=== PATIENT | male | born 1965 | race Caucasian/White ===

== ENCOUNTER → 2024-03-09 09:20 | Outpatient (REF) | payer BC, SELFPAY ==
[2024-03-09 20:04] LABS: ALT (SGPT) 36 U/L (0-50); AST (SGOT) 35 U/L (17-59); Albumin 4.4 g/dl (3.5-5.0); Alkaline Phosphatase 120 U/L (38-126); Blood Urea Nitrogen 17 mg/dl (9-20); Calcium 9.5 mg/dl (8.4-10.2); Carbon Dioxide 24 mmol/L (22-30); Chloride 102 mmol/L (98-107); Glucose 97 mg/dl (70-99); HDL Cholesterol 49 mg/dl; LDL Cholesterol, Calculated 75 mg/dl; Sodium 139 mmol/L (135-145); Total Bilirubin 0.7 mg/dl (0.2-1.3); Total Cholesterol 153 mg/dl (50-199); Total Protein 7.3 g/dl (6.3-8.2); Triglyceride 145 mg/dl (10-149); Very Low Density Lipoprotein 29 mg/dl (0-30); eGFR > 60.00
[2024-03-09 20:30] LABS: Hematocrit 49.3 % (39.0-52.0); Hemoglobin 15.7 g/dL (13.0-18.0); Mean Corpuscular Volume 92.3 fL (80.0-94.0); Red Blood Cell Count 5.34 10^6/uL (4.70-6.10); White Blood Cell Count 7.1 10^3/uL (4.8-10.8)
[2024-03-09 20:31] LABS: Mean Corp Hgb Conc. 31.8 g/dL (33.0-37.0); Mean Corpuscular Hgb 29.4 pg (27.0-31.0); Mean Platelet Volume 10.5 fL (7.4-10.4); Platelet Count 275 10^3/uL (130-400); Red Cell Dist. Width 12.7 % (11.5-14.5)
[2024-03-09 20:34] LABS: TSH Reflex To Free T4 1.33 uIU/ml (0.47-4.68)
[2024-03-10 11:44] LABS: Glycohemoglobin (HgbA1c) 5.2 % (4.0-5.6)
[2024-03-11 21:34] LABS: PSA Total 1.5 ng/mL (0.0-4.0)
[2024-03-12 01:43] LABS: Vitamin D 1,25 Dihydroxy 70.6 pg/mL (19.9-79.3)
== END ==
LOC: CLAB 09:20
PROVIDERS: ATTENDING PHYSICIAN Nurse Practitioner Family
DX: E78.2 Mixed hyperlipidemia (principal); Z13.21 Encounter for screening for nutritional disorder; Z13.29 Encounter for screening for other suspected endocrine disorder; Z13.1 Encounter for screening for diabetes mellitus
CPT/HCPCS: 36415; 80053; 80061; 82652; 83036; 84153; 84154; 84443; 85027

== ENCOUNTER 2024-05-31 16:23 | Emergency (ER) | payer BC, SELFPAY ==
[2024-05-31 16:32] VITALS: BP 142/89
[2024-05-31 16:55] VITALS: BMI 39.4
--- NOTE | 2024-05-31 17:41 | ED.GENMED ---
History of Present Illness
<Max Henderson MD - Last Filed: 05/31/24 17:45>
General
Chief Complaint: Skin Surface Trauma
Time Seen by Provider: 05/31/24 17:09
<Luanne Courtney MD, Resident - Last Filed: 05/31/24 19:19>
General
Source: patient
History of Present Illness
History of Present Illness:
This is a 58-year-old male patient who presented to the ED after suffering a dog bite. He states that yesterday evening his 2 dogs got into a fight at home and patient tried to intervene and was inadvertently bit on his left hand on his index
finger. He bandaged it at home and today afternoon he went to visit his primary care physician who started him on Augmentin and suggested he come to the ER for any further wound care. Patient is up-to-date with tetanus vaccine. Dogs are
up-to-date with vaccinations. Patient denies any fever chills or vomiting.
Past History
<Luanne Courtney MD, Resident - Last Filed: 05/31/24 19:19>
Past History
ED Past Medical History: HTN and Other (Hyperlipidemia, anxiety)
ED Past Surgical History: Appendectomy
Social History
Tobacco: Non-smoker
Alcohol: None
Personal:
Living: with family
Review of Systems
<Luanne Courtney MD, Resident - Last Filed: 05/31/24 19:19>
Review of Systems
Constitutional: Denies fever or chills
Cardiac: Denies chest pain
ABD/GI: Denies abdominal pain, vomiting or diarrhea
Neurological: Denies headache or numbness
Phy Exam
<Luanne Courtney MD, Resident - Last Filed: 05/31/24 19:19>
General Physical Exam
General Presentation: well appearing and no apparent distress
Cardiovascular Exam
Cardiovascular Exam: regular rate/rhythm and no murmur
Systolic Murmur: 1/6
Heart Sounds: normal
Pulmonary Exam
Pulmonary Exam: lungs clear, no respiratory distress and no crackles
Gastrointestinal Exam
Gastrointestinal Exam: non tender, soft and non distended
Neurological Exam
Neurological Exam: oriented x3
Musculoskeletal Exam
Musculoskeletal Exam: no edema
Skin Exam
Skin Exam: warm/dry
Psychiatric Exam
Psychiatric Exam: normal mood/affect
Course
<Max Henderson MD - Last Filed: 05/31/24 17:45>
Vital Signs
Initial and Last Documented VS:
Initial Vital Signs
Temp Pulse Resp BP Pulse Ox
98 F 68 16 142/89 98
05/31/24 16:32 05/31/24 16:32 05/31/24 16:32 05/31/24 16:32 05/31/24 16:32
Last Documented Vital Signs
Temp Pulse Resp BP Pulse Ox
98 F 68 16 142/89 98
05/31/24 16:32 05/31/24 16:32 05/31/24 16:32 05/31/24 16:32 05/31/24 16:32
<Luanne Courtney MD, Resident - Last Filed: 05/31/24 19:19>
Vital Signs
Initial and Last Documented VS:
Initial Vital Signs
Temp Pulse Resp BP Pulse Ox
98 F 68 16 142/89 98
05/31/24 16:32 05/31/24 16:32 05/31/24 16:32 05/31/24 16:32 05/31/24 16:32
Last Documented Vital Signs
Temp Pulse Resp BP Pulse Ox
98 F 68 16 142/89 98
05/31/24 16:32 05/31/24 16:32 05/31/24 16:32 05/31/24 16:32 05/31/24 16:32
<Luanne Courtney MD, Resident - Last Filed: 05/31/24 19:19>
MDM/Problems Addressed
Differential Diagnosis Includes:
Dog bite
MDM/Problems Addressed:
Patient's wound on left index finger was irrigated with normal saline and cleaned with dressing applied. As patient is up-to-date on tetanus vaccine and already has Augmentin prescription sent in by his primary care, he is stable for discharge with
being advised to follow-up with his primary care physician in 1 week.
<Luanne Courtney MD, Resident - Last Filed: 05/31/24 19:19>
*Critical Care Note
Total Time (30-74mins, 75-104mins- exclusive of procedures): Not Applicable
ED Attending Note
<Max Henderson MD - Last Filed: 05/31/24 17:45>
ED Attending Note
Patient seen and examined by attending physician: Yes
I performed a history and physical exam of patient and discussed management with resident, I reviewed resident's note and agree with documented findings and plan of care.: Yes
ED Attending Note:
I have seen and evaluated the patient with a [id number] encounter. I have spoken to the resident and involved in the medical history, the physical exam, medical decision making.
Evaluation and management service: agree unless noted differently below.
Results interpretation: agree unless noted differently below.
Focused HPI: 58-year-old male with no significant chronic medical issues presents for evaluation of dog bite to the finger. Patient says that last night around 5:30 PM he was breaking up a fight with his dogs and was bitten on the left index
finger. Sustained laceration of the finger. Presented to his primary care physician today and he was referred to the ER. He is up-to-date on his tetanus. Dogs are up-to-date on vaccinations. Prescribed an antibiotic by his PCP.
Physical exam: Patient has shallow lacerations to the dorsal and medial aspect of the left index finger between the MCP joint and the DIP joint; no exposed tendon on exploration through range of motion and good strength on range of motion in the
finger.
Medical Decision Makin-year-old male presents after dog bite. Tetanus up-to-date. No indication for rabies prophylaxis. Treat with prophylactic antibiotic. Spoke with patient about potential for laceration repair�given location and high
incidence of infection hesitant to suture this wound especially 24 hours after the initial injury. I did vigorously clean the wound initially with hydrogen peroxide wash followed by Betadine scrub and saline rinse. Dressing applied. Will allow
for healing through secondary intention. Patient comfortable with this plan. Follow with hand surgery as needed. Spoke about return precautions including any signs of infection. All questions answered.
-
Portions of this chart may have been created with voice recognition software.� Occasional wrong word or��sound alike� substitutions may have occurred due to the inherent limitations of voice recognition software.
Discharge Plan
Departure
Patient Disposition: Home (Routine Discharge)
Date of Disposition: 05/31/24
Time of Disposition: 17:34
Patient with high blood pressure during this ER visit?: No
Discharge Problem:
Dog bite, Finger laceration
Instructions: Wound Care (DC)
Prescriptions:
New
amoxicillin-pot clavulanate 875-125 mg tablet
1 tab PO BID Qty: 14 0RF
Referrals:
Hi Jasso MD [Active] - Call in 1-3 days for appt
Andrew Ghotra DO [Community] - Call in 1-3 days for appt
Activity Restrictions/Additional Instructions:
Thank you for visiting the Emergency Department at [facility].
1. Please schedule a follow up appointment as directed. Call first thing tomorrow morning to make an appointment.
2. If indicated, please take your medications as instructed and indicated on discharge paperwork.
3. If any of your symptoms do not improve, or persist, or become more severe within 6-12 hours, please return to the emergency department for further care.
4. Please return to the emergency department if you develop a headache, neck pain/stiffness, fever greater than 100.4F, chest pain, shortness of breath, persistent nausea, vomiting, slurred speech, difficulty walking, numbness/tingling, weakness,
signs of infection or any other symptoms that are worrisome to you.
Please call [phone] if you have any questions.
Interventions
Interventions:
*Risk Screen - Suicide Last Done: 05/31/24 16:37
*Neglect/Abuse Screening Last Done: 05/31/24 16:37
*Nursing Disposition Last Done: 05/31/24 17:43
ED-Skin Assessment Last Done: 05/31/24 16:55
Discharge Date and Time
Discharge Date/Time: 05/31/24 17:44
Print Language: BRUNEIAN
== END 2024-05-31 17:44 | disposition home or self-care (01) ==
LOC: EMR 16:23
PROVIDERS: EMERGENCY PHYSICIAN Emergency Medicine; FAMILY PHYSICIAN Student in an Organized Health Care Education/Training Program
DX: S61.251A Open bite of left index finger without damage to nail, initial encounter (principal); W54.0XXA Bitten by dog, initial encounter; I10 Essential (primary) hypertension; E78.49 Other hyperlipidemia
CPT/HCPCS: 99283

== ENCOUNTER → 2025-04-11 06:52 | Outpatient (REF) | payer BC, SELFPAY ==
[2025-04-11 08:29] LABS: Blood Urea Nitrogen 11 mg/dl (9-20); Calcium 9.0 mg/dl (8.4-10.2); Carbon Dioxide 30 mmol/L (22-30); Chloride 105 mmol/L (98-107); Glucose 91 mg/dl (70-99); Potassium 4.7 mmol/L (3.5-5.1); Sodium 139 mmol/L (135-145); eGFR > 60.00
== END ==
LOC: REG 06:52
PROVIDERS: ATTENDING PHYSICIAN Nurse Practitioner Family
DX: R10.32 Left lower quadrant pain (principal)
CPT/HCPCS: 36415; 80048

== ENCOUNTER → 2025-04-12 13:55 | Outpatient (REF) | payer BC, SELFPAY | LOC: RAD 13:55 | PROVIDERS: ATTENDING PHYSICIAN Nurse Practitioner Family; FAMILY PHYSICIAN Family Medicine | DX: R10.32 Left lower quadrant pain (principal) | CPT/HCPCS: 74177; Q9967 ==